=== PATIENT | female | born 1955 | race Caucasian/White ===

== ENCOUNTER 2020-01-19 11:48 | Emergency (ER) | payer BC ==
--- NOTE | 2020-01-19 12:37 | RADIOLOGY REPORT (SQ) ---
EXAM DESCRIPTION: CT FACIAL AREA WITHOUT; CT CERVICAL SPINE WITHOUT; CT HEAD WITHOUT IMAGES COMPLETED DATE/TIME: 01/19/2020 12:24 pm REASON FOR STUDY: Fall head face neck injury COMPARISON: None. TECHNIQUE: Axial images acquired through the brain, facial bones, cervical spine without intravenous contrast. Images reviewed with brain, subdural, lung, soft tissue and bone windows. Reconstructed coronal and sagittal MPR images reviewed. Images stored on PACS. All CT scanners at this facility use dose modulation, iterative reconstruction, and/or weight based d osing when appropriate to reduce radiation dose to as low as reasonably achievable (ALARA). [facility]: Dose Right [facility]: CareDose [facility]: Dose Right [facility]: Teradose 4D [facility]: [employer] RADIATION DOSE: CT Rad equipment meets quality standard of care and radiation dose reduction techniq ues were employed. CTDIvol: 30.4 mGy. DLP: 623 mGy-cm.; CT Rad equipment meets quality standard of ca re and radiation dose reduction techniques were employed. CTDIvol: 17.6 mGy. DLP: 349 mGy-cm.; CT Rad equipment meets quality standard of care and radiation dose reduction techniques were employed. CTDI vol: 53.2 mGy. DLP: 991 mGy-cm. mGy. LIMITATIONS: None. FINDINGS: Brain No hemorrhage or mass or shift or hydrocephalus or fracture orbit pathology or sinus fluid. Facial bones No fracture. Clear paranasal sinuses. Orbits intact. Degenerative changes in the TMJs. Cervical spine No malalignment or fracture. Lower cervical spondylosis with disc space narrowing and mild osteophyt es. There is also mild facet degenerative change. Soft tissues intact. No apical pneumothorax. IMPRESSION: 1. No acute intracranial abnormality. 2. No significant facial fracture. 3. No cervical spine fracture or malalignment. TECHNICAL DOCUMENTATION: JOB ID: [id number] Quality ID # [id number]: Final reports with documentation of one or more dose reduction techniques (e.g., Au tomated exposure control, adjustment of the mA and/or kV according to patient size, use of iterative reconstruction technique) 2010 [employer]- All Rights Reserved Reading location - IP[facility]workstation name: [email or web address]
--- NOTE | 2020-01-19 12:37 | RADIOLOGY REPORT (SQ) ---
EXAM DESCRIPTION: CT FACIAL AREA WITHOUT; CT CERVICAL SPINE WITHOUT; CT HEAD WITHOUT IMAGES COMPLETED DATE/TIME: 01/19/2020 12:24 pm REASON FOR STUDY: Fall head face neck injury COMPARISON: None. TECHNIQUE: Axial images acquired through the brain, facial bones, cervical spine without intravenous contrast. Images reviewed with brain, subdural, lung, soft tissue and bone windows. Reconstructed coronal and sagittal MPR images reviewed. Images stored on PACS. All CT scanners at this facility use dose modulation, iterative reconstruction, and/or weight based d osing when appropriate to reduce radiation dose to as low as reasonably achievable (ALARA). [facility]: Dose Right [facility]: CareDose [facility]: Dose Right [facility]: Teradose 4D [facility]: [employer] RADIATION DOSE: CT Rad equipment meets quality standard of care and radiation dose reduction techniq ues were employed. CTDIvol: 30.4 mGy. DLP: 623 mGy-cm.; CT Rad equipment meets quality standard of ca re and radiation dose reduction techniques were employed. CTDIvol: 17.6 mGy. DLP: 349 mGy-cm.; CT Rad equipment meets quality standard of care and radiation dose reduction techniques were employed. CTDI vol: 53.2 mGy. DLP: 991 mGy-cm. mGy. LIMITATIONS: None. FINDINGS: Brain No hemorrhage or mass or shift or hydrocephalus or fracture orbit pathology or sinus fluid. Facial bones No fracture. Clear paranasal sinuses. Orbits intact. Degenerative changes in the TMJs. Cervical spine No malalignment or fracture. Lower cervical spondylosis with disc space narrowing and mild osteophyt es. There is also mild facet degenerative change. Soft tissues intact. No apical pneumothorax. IMPRESSION: 1. No acute intracranial abnormality. 2. No significant facial fracture. 3. No cervical spine fracture or malalignment. TECHNICAL DOCUMENTATION: JOB ID: [id number] Quality ID # [id number]: Final reports with documentation of one or more dose reduction techniques (e.g., Au tomated exposure control, adjustment of the mA and/or kV according to patient size, use of iterative reconstruction technique) 2010 [employer]- All Rights Reserved Reading location - IP[facility]workstation name: [email or web address]
--- NOTE | 2020-01-19 12:37 | RADIOLOGY REPORT (SQ) ---
EXAM DESCRIPTION: CT FACIAL AREA WITHOUT; CT CERVICAL SPINE WITHOUT; CT HEAD WITHOUT IMAGES COMPLETED DATE/TIME: 01/19/2020 12:24 pm REASON FOR STUDY: Fall head face neck injury COMPARISON: None. TECHNIQUE: Axial images acquired through the brain, facial bones, cervical spine without intravenous contrast. Images reviewed with brain, subdural, lung, soft tissue and bone windows. Reconstructed coronal and sagittal MPR images reviewed. Images stored on PACS. All CT scanners at this facility use dose modulation, iterative reconstruction, and/or weight based d osing when appropriate to reduce radiation dose to as low as reasonably achievable (ALARA). [facility]: Dose Right [facility]: CareDose [facility]: Dose Right [facility]: Teradose 4D [facility]: [employer] RADIATION DOSE: CT Rad equipment meets quality standard of care and radiation dose reduction techniq ues were employed. CTDIvol: 30.4 mGy. DLP: 623 mGy-cm.; CT Rad equipment meets quality standard of ca re and radiation dose reduction techniques were employed. CTDIvol: 17.6 mGy. DLP: 349 mGy-cm.; CT Rad equipment meets quality standard of care and radiation dose reduction techniques were employed. CTDI vol: 53.2 mGy. DLP: 991 mGy-cm. mGy. LIMITATIONS: None. FINDINGS: Brain No hemorrhage or mass or shift or hydrocephalus or fracture orbit pathology or sinus fluid. Facial bones No fracture. Clear paranasal sinuses. Orbits intact. Degenerative changes in the TMJs. Cervical spine No malalignment or fracture. Lower cervical spondylosis with disc space narrowing and mild osteophyt es. There is also mild facet degenerative change. Soft tissues intact. No apical pneumothorax. IMPRESSION: 1. No acute intracranial abnormality. 2. No significant facial fracture. 3. No cervical spine fracture or malalignment. TECHNICAL DOCUMENTATION: JOB ID: [id number] Quality ID # [id number]: Final reports with documentation of one or more dose reduction techniques (e.g., Au tomated exposure control, adjustment of the mA and/or kV according to patient size, use of iterative reconstruction technique) 2010 [employer]- All Rights Reserved Reading location - IP/workstation name: [email or web address]
[2020-01-19] MEDS ORDERED: HYDROCODONE/ACETAMINOPHEN 5-325 MG TABLET PO ONE (12:47)
--- NOTE | 2020-01-19 12:58 | RADIOLOGY REPORT (SQ) ---
EXAM DESCRIPTION: KNEE LEFT 4 VIEW IMAGES COMPLETED DATE/TIME: 01/19/2020 11:35 am REASON FOR STUDY: Fall injury extremities COMPARISON: None. NUMBER OF VIEWS: Four views. TECHNIQUE: AP, lateral, and both oblique radiographic images acquired of the left knee. LIMITATIONS: None. FINDINGS: MINERALIZATION: Normal. BONES: No acute fracture or dislocation. Healed nonossifying fibroma distal femur. No worrisome bon e lesions. JOINT: No effusion. SOFT TISSUES: No soft tissue swelling. No radio-opaque foreign body. OTHER: No other significant finding. IMPRESSION: NEGATIVE STUDY OF THE LEFT KNEE. NO RADIOGRAPHIC EVIDENCE OF ACUTE INJURY. TECHNICAL DOCUMENTATION: JOB ID: [id number] 2010 [employer]- All Rights Reserved Reading location - IP/workstation name: [id number]
--- NOTE | 2020-01-19 13:00 | RADIOLOGY REPORT (SQ) ---
EXAM DESCRIPTION: KNEE RIGHT 4 VIEWS IMAGES COMPLETED DATE/TIME: 01/19/2020 11:35 am REASON FOR STUDY: Fall injury extremities COMPARISON: None. NUMBER OF VIEWS: Four views. TECHNIQUE: AP, lateral, and both oblique radiographic images acquired of the right knee. LIMITATIONS: None. FINDINGS: MINERALIZATION: Normal. BONES: No acute fracture or dislocation. No worrisome bone lesions. JOINT: No effusion. SOFT TISSUES: No soft tissue swelling. No radio-opaque foreign body. OTHER: No other significant finding. IMPRESSION: NEGATIVE STUDY OF THE RIGHT KNEE. NO RADIOGRAPHIC EVIDENCE OF ACUTE INJURY. TECHNICAL DOCUMENTATION: JOB ID: [id number] 2010 [employer]- All Rights Reserved Reading location - IP/workstation name: [email or web address]
--- NOTE | 2020-01-19 13:09 | ER Document Report ---
ED Head/Face/Scalp Injury - General Chief Complaint: Head Injury Stated Complaint: FALL/FACIAL,MOUTH INJURY Time Seen by Provider: 01/19/20 11:56 Primary Care Provider: YING BRAND DA [DENTAL PAINT TINTER] - 01/21/20 HASMUKH DANGELO DDS [NO LOCAL MD] - 01/21/20 JONO ROONEY DA [DENTAL PAINT TINTER] - 01/21/20 FABIANA HINOJOSA DDS [ACTIVE STAFF] - 01/21/20 DONYA MENDOZA MD [ACTIVE STAFF] - Follow up in 3-5 days ZECHARIAH STEPHENSON CDA [DENTAL PAINT TINTER] - 01/21/20 Notes: Patient is a 64-year-old female with a history of degenerative disc disease who presents emergency department after a fall. Patient states that she tripped and fell and hit her head. She did have loss of consciousness. She was able to get up and able to walk. States that the left side of her face hurts and she feels that her jaw is out of alignment. Patient also states that she has left knee pain. Denies any blood thinner use. - Related Data Allergies/Adverse Reactions: morphine Allergy (Verified 01/19/20 11:56) Past Medical History - Social History Smoking Status: Never Smoker Family History: Reviewed & Not Pertinent Patient has homicidal ideation: No Review of Systems - Review of Systems Notes: REVIEW OF SYSTEMS: CONSTITUTIONAL : Denies recent illness. Denies recent unintentional weight loss. Denies fever, chills, or sweats. EENT: Denies eye, ear, throat, or mouth pain, discharge, or symptoms. Denies nasal or sinus congestion. CARDIOVASCULAR: Denies chest pain. RESPIRATORY: Denies shortness of breath, cough, congestion, difficulty breathing, or wheezing. GASTROINTESTINAL: Denies nausea, vomiting, and diarrhea. Denies abdominal pain. Denies constipation. GENITOURINARY: Denies difficulty urinating, burning, blood in urine, urgency or frequency. MUSCULOSKELETAL: See HPI. SKIN: Denies rash, itchiness, or lesions HEMATOLOGIC : Denies easy bruising or bleeding. LYMPHATIC: Denies swollen, painful, enlarged glands. NEUROLOGICAL: See HPI. PSYCHIATRIC: Denies stress, anxiety, alteration in sleep patterns, or depression. All other systems reviewed and negative. Physical Exam - Vital signs Vitals: Temp Pulse Resp BP Pulse Ox 97.4 F 74 18 157/81 H 100 01/19/20 11:57 01/19/20 11:57 01/19/20 11:57 01/19/20 11:57 01/19/20 11:57 - Notes Notes: PHYSICAL EXAMINATION: GENERAL: Appears well, healthy, well-nourished, no acute distress. HEAD: Normocephalic. Irregular laceration noted to left upper lip. Multiple abrasions noted to left side of face. EYES: PERRL, conjunctiva normal, all extraocular movements intact, sclera nonicteric ENT: Moist mucous membranes. NECK: Supple, no noticeable swelling, redness, rash. Normal range of motion. LUNGS: Equal breath sounds bilaterally and clear to auscultation. No wheezes rales or rhonchi. CARDIOVASCULAR: S1-S2, regular rate, regular rhythm. Radial pulses 2+, normal. ABDOMEN: Normoactive bowel sounds. Soft, nontender, no guarding, no rebound tenderness, and no masses palpated. EXTREMITIES: Normal strength and range of motion. Slight edema noted to the left knee. Abrasions noted to bilateral knees. Tender left upper shoulder. NEUROLOGICAL: Moves all extremities upon command. Strength 5/5 in all extremities. PSYCH: Normal mood, normal affect. SKIN: Warm, dry. Multiple abrasions noted to bilateral knees and left shoulder. Course - Re-evaluation Re-evalutation: 01/19/20 13:16 The patient reported that her jaw fell out of alignment. Her CT showed that her jaw showed some TMJ. Patient states that she never had that before. I spoke with Dr. Moser, he does not see an obvious malalignment. He states that it is actually present on both sides. CT of the head and neck are unremarkable. Knee x-rays are unremarkable. 01/19/20 13:41 Dr. Matthews evaluated the patient with me and he does not see any obvious malalignment of the patient's either. Patient does have a loose tooth to her left upper medial incisor. Patient will follow-up with a dentist in the area in regards to this visit. She also follow-up with maxillofacial or oral surgery. 01/19/20 16:00 Patient's lip lacerations were repaired. Discussed with the patient that due to her laceration being irregular, the repair was difficult. Patient is to follow- up with oral surgery in the next 3 to 5 days to have her sutures removed. She is in agreement with this plan. Follow-up precautions were given. Verbal discharge instructions were given to the patient. They verbalized understanding. They are stable for discharge. - Vital Signs Vital signs: Temp Pulse Resp BP Pulse Ox 97.7 F 63 18 123/72 99 01/19/20 16:49 01/19/20 16:49 01/19/20 16:49 01/19/20 16:49 01/19/20 16:49 Procedures - Laceration/Wound Repair Left Face Wound length (cm): 3 Wound's Depth, Shape: Irregular, Flap Laceration pre-procedure: Sterile PPE donned, Sterile drapes applied, Shur-Clens applied Anesthetic type: 1% Lidocaine w/epi Volume Anesthetic (mLs): 12 Wound explored: Clean, No foreign body removed Irrigated w/ Saline (mLs): 100 Wound Repaired With: Sutures Suture Size/Type: 6:0, Prolene Number of Sutures: 5 Post-procedure wound care: Sterile dressing applied Post-procedure NV exam normal: Yes Complications: No Adult Head Front/Back picture: 1 - Irregular laceration with multiple flaps. Left lateral face Wound length (cm): 2 Wound's Depth, Shape: Superficial, Linear Laceration pre-procedure: Sterile PPE donned Anesthetic type: 1% Lidocaine w/epi Wound explored: Clean, No foreign body removed Wound Repaired With: Sutures Suture Size/Type: 6:0, Prolene Number of Sutures: 3 Post-procedure wound care: Sterile dressing applied Post-procedure NV exam normal: Yes Complications: No Adult Head Front/Back picture: 1 - Laceration Discharge - Discharge Clinical Impression: Fall Qualifiers: Encounter type: initial encounter Qualified Code(s): W19.XXXA - Unspecified fall, initial encounter Face lacerations Qualifiers: Encounter type: initial encounter Qualified Code(s): S01.81XA - Laceration without foreign body of other part of head, initial encounter Left knee pain Qualifiers: Chronicity: acute Qualified Code(s): M25.562 - Pain in left knee Left shoulder pain Qualifiers: Chronicity: acute Qualified Code(s): M25.512 - Pain in left shoulder Condition: Stable Disposition: HOME, SELF-CARE Instructions: Soap Cleansing ([facility]), Tetanus Immunization Given ([facility]) Additional Instructions: You were seen today in the emergency department after a fall. You have a laceration to your face. The laceration was repaired here in the emergency department. Please keep the area covered. Apply [id number] Neosporin or the generic brand of this to your sutures. Follow-up with with plastic surgery or maxillofacial surgery when you get home. You can get a referral from your primary care provider. When your wound heals and the sutures are out, you can apply sunblock to help with scarring. You also have a tooth contusion. Please follow-up with 1 of the local dentist in the area within the next 3 to 5 days. Please have them evaluate your tooth. You are also being prescribed narcotic pain medicine. Do not drive or operate heavy machinery when taking this medication. You can eat and drink, but if a certain food hurts you, please do not eat it. Stick to soft foods like applesauce and mashed potatoes. Please follow-up with Dr. Mendoza in 3 to 5 days to have your sutures removed. Prescriptions: Amoxicillin/Potassium Clav [Augmentin 875-125 Tablet] 1 tab PO BID #14 tab Oxycodone HCl/Acetaminophen [Percocet 5-325 mg Tablet] 1 - 2 tab PO Q4H PRN #25 tablet PRN Reason: Referrals: YING BRAND DA [DENTAL PAINT TINTER] - 01/21/20 HASMUKH DANGELO DDS [NO LOCAL ] - 01/21/20 JONO ROONEY DA [DENTAL PAINT TINTER] - 01/21/20 FABIANA HINOJOSA DDS [ACTIVE STAFF] - 01/21/20 ZECHARIAH STEPHENSON CDA [DENTAL PAINT TINTER] - 01/21/20 DONYA MENDOZA MD [ACTIVE STAFF] - Follow up in 3-5 days
[2020-01-19] MEDS ORDERED: LIDOCAINE 1%/EPINEPHRINE INJ 20 ML VIAL INJ ONE (13:17)
--- NOTE | 2020-01-19 14:01 | RADIOLOGY REPORT (SQ) ---
EXAM DESCRIPTION: SHOULDER LEFT 2 OR MORE VIEWS IMAGES COMPLETED DATE/TIME: 01/19/2020 1:45 pm REASON FOR STUDY: left shoulder pain COMPARISON: None. NUMBER OF VIEWS: Three views. TECHNIQUE: Internal rotation, external rotation, and Y view images acquired of the left shoulder. LIMITATIONS: None. FINDINGS: MINERALIZATION: Normal. BONES: No acute fracture. JOINTS: No dislocation. Mild degenerative changes at the acromioclavicular and glenohumeral joints. VISUALIZED LUNGS AND RIBS: No pneumothorax. No displaced rib fracture. SOFT TISSUES: No radiopaque foreign body. IMPRESSION: No radiographic evidence for acute fracture or dislocation at the left shoulder. Mild d egenerative changes. TECHNICAL DOCUMENTATION: JOB ID: [id number] [place]-64 2010 [employer]- All Rights Reserved Reading location - IP/workstation name: [email or web address]
--- NOTE | 2020-01-19 14:17 | ER Document Report ---
Doctor's Note Notes: 01/19/20 14:12 This patient I was asked to see with nurse practitioner. 64-year-old female sustained a accidental mechanical fall landing face down on pavement with transient loss of consciousness and she sustained injuries to her face including a laceration and possible dental injuries. Patient is hemodynamically stable. She has laceration of the left facial area above the upper lip. She has slight loosening of the left upper central incisor and lateral incisor. She has a sense of mild malocclusion although this is not clearly identified on physical exam. She is able to open and close the jaw normally. Facial CT had already been obtained and I reviewed the report. Nurse practitioner also called the radiologist for clarification on this. There is no obvious mandibular fracture. Patient is being given a tetanus booster. I recommended that we lavaged the area the laceration copiously and carefully debride the wound edges and approximate these with sutures. She will be started on oral antibiotics and referred to a dentist or oral surgeon within the next 24 to 48 hours for follow- up. Patient and were very anxious to know what the appearance of the scar would be ultimately. I clearly explained to them that it would require a minimum of 12 months until the final appearance of the scar was achieved. Head injury instructions will be carefully reviewed with patient and prior to discharge.
[2020-01-19] MEDS ORDERED: ONDANSETRON 4 MG TAB.RAPDIS PO ONE (15:25)
[2020-01-19] MEDS ORDERED: DIPH/PERTUSS(ACELL)/TETANUS VAC/PF 0.5 ML SYR (>=10YO) IM ONE (16:30)
[2020-01-19 17:01] VITALS: BP 123/72
== END 2020-01-19 17:00 | disposition home or self-care (01) ==
LOC: ER 11:48
DX: S01.511A Laceration without foreign body of lip, initial encounter (principal); S80.212A Abrasion, left knee, initial encounter; S80.211A Abrasion, right knee, initial encounter; S40.212A Abrasion of left shoulder, initial encounter; W01.0XXA Fall on same level from slipping, tripping and stumbling without subsequent striking against object, initial encounter; Y93.01 Activity, walking, marching and hiking; R55 Syncope and collapse; M26.603 Bilateral temporomandibular joint disorder, unspecified; K08.89 Other specified disorders of teeth and supporting structures; M26.609 Unspecified temporomandibular joint disorder, unspecified side; Z23 Encounter for immunization; Z88.6 Allergy status to analgesic agent; Z88.5 Allergy status to narcotic agent
CPT/HCPCS: 99284; 90471; 73564 ×2; 73030; 70450; 70486; 72125; 90715; 12013; S0119; J3490